=== PATIENT | female | born 1960 | race African-American/Black ===

== ENCOUNTER 2021-04-08 13:25 | Emergency (ER) | payer BC ==
[~2021-04-08] VITALS: Ht 175.3 cm; Wt 75.0 kg
[2021-04-08] MEDS ORDERED: MAALOX/HYOSCYAMINE/LIDOCAINE 45 ML BTL ONE (13:58)
[2021-04-08] MEDS ORDERED: FAMOTIDINE 20 MG TABLET ONE (13:58)
[2021-04-08] MEDS ORDERED: FAMOTIDINE 20 MG TABLET PO ONE (14:00)
[2021-04-08] MEDS ORDERED: MAALOX/HYOSCYAMINE/LIDOCAINE 45 ML BTL PO ONE (14:00)
[2021-04-08 14:37] LABS: BASOPHILS % (AUTO) 0 % (0-1); EOSINOPHILS % (AUTO) 0 % (1-7); LYMPHOCYTES % (AUTO) 11 % (22-44); MEAN CORPUSCULAR HEMOGLOBIN 28.3 pg (27.0-34.8); MEAN CORPUSCULAR HGB CONC 32.3 g/dL (32.4-35.8); MONOCYTES % (AUTO) 6 % (2-9); NEUTROPHILS % (AUTO) 83 % (42-75); PLATELET COUNT 243 x10^3/uL (130-400); RED BLOOD COUNT 4.49 x10^6/uL (3.82-5.3); RED CELL DISTRIBUTION WIDTH 13.9 % (9.6-15.2)
[2021-04-08 14:47] LABS: ALBUMIN 3.4 g/dL (3.4-5.0); ANION GAP 6 mmol/L (5-15); CALCIUM 8.7 mg/dL (8.5-10.1); CHLORIDE 106 mmol/L (98-107)
[2021-04-08 14:52] LABS: ALANINE AMINOTRANSFERASE 19 U/L (12-78); ALKALINE PHOSPHATASE 61 U/L (45-117); BILIRUBIN,TOTAL 0.3 mg/dL (0.2-1.0); CREATININE 0.63 mg/dL (0.55-1.02); TOTAL PROTEIN 8.1 g/dL (6.4-8.2); TROPONIN I < 0.015 ng/mL (0.000-0.045)
[2021-04-08] MEDS ORDERED: MORPHINE SULFATE 4 MG/ML, 1ML ONE (14:59)
[2021-04-08] MEDS ORDERED: ONDANSETRON 2MG/ML, 2ML ONE (14:59)
[2021-04-08] MEDS ORDERED: MORPHINE SULFATE 4 MG/ML, 1ML IVPush PRN (15:00)
[2021-04-08] MEDS ORDERED: ONDANSETRON 2MG/ML, 2ML IVPush ONE (15:00)
[2021-04-08 15:11] VITALS: BP 133/81
[2021-04-08 15:26] LABS: MICROSCOPIC NOT IND
== END 2021-04-08 16:05 | disposition home or self-care (01) ==
LOC: ED 15:55
DX: K29.00 Acute gastritis without bleeding (principal); K21.9 Gastro-esophageal reflux disease without esophagitis; R11.2 Nausea with vomiting, unspecified
CPT/HCPCS: 36415; 71045; 80053; 81003; 83690; 84484; 85025; 93005; 96374; 96375; 99285; J2270; J2405